=== PATIENT | female | born 1960 | race Two or more races ===

== ENCOUNTER 2017-04-03 10:33 | Emergency (ER) | payer MEDICAID ==
[~2017-04-03] VITALS: Ht 162.6 cm; Wt 65.8 kg
[~2017-04-03 10:33] MED LIST: ALPR1TAB2 PO; ARIP2TAB PO; GABA-339 PO; NIC21P TOP; PROZAC PO; QUET400T PO
[2017-04-03 11:45] LABS: Basophils # (auto) 0 uL; Basophils % (auto) 0.2 % (0.0-2.0); Eosinophils # (auto) 0.1 uL; Eosinophils % (auto) 0.8 % (0.0-7.0); Hematocrit 38.6 % (36.0-46.0); Hemoglobin 12.9 g/dL (12.2-16.2); Lymphocytes # (auto) 0.8 uL; Lymphocytes % (auto) 10.9 % (10.0-50.0); Mean Corpuscular Hemoglobin 32.4 pg (28.0-32.0); Mean Corpuscular Hgb Conc. 33.4 g/dL (32.0-36.0); Mean Platelet Volume 6.5 fL (6.9-10.8); Monocytes # (auto) 0.3 uL; Neutrophils # (auto) 5.8 uL; Neutrophils % (auto) 84.1 % (37.0-80.0); Platelet Count (auto) 320 10^3/uL (140-450); Red Cell Distribution Width 14.3 % (11.8-14.3)
[2017-04-03 12:13] LABS: Albumin 4.4 g/dL (3.4-5.0); BUN/Creatinine Ratio 11.1; Bilirubin, Total 0.4 mg/dL (0.2-1.0); Calcium 9.2 mg/dL (8.5-10.1)
[2017-04-03] MEDS ORDERED: SODIUM CHLORIDE 0.9% 1,000 ML IV ONE (17:30)
[2017-04-03] MEDS ORDERED: QUEtiapine FUMARATE 100 MG TAB PO ONE (19:45)
[2017-04-04 10:16] LABS: Urine Bilirubin Negative (Negative); Urine Blood Negative /uL (Negative); Urine Color Yellow (Yellow); Urine Glucose Normal (Normal); Urine Ketone 1+ (Negative); Urine Nitrite Negative (Negative); Urine RBC 2 /hpf (0 - 4); Urine Squamous Epithelial Cell FEW /hpf (<5); Urine Urobilinogen Normal (Negative)
[2017-04-04] MEDS ORDERED: ACETAMINOPHEN 500 MG TAB PO ONE (14:00)
[2017-04-04] MEDS ORDERED: ALPRAZolam 0.5 MG TAB PO ONE (15:45)
[2017-04-05] MEDS ORDERED: ALPRAZolam 0.5 MG TAB PO SCH (10:00)
[2017-04-05] MEDS ORDERED: CIPROFLOXACIN HCL 500 MG TAB PO ONE (13:45)
[2017-04-05 16:43] VITALS: BP 131/80
== END 2017-04-05 13:40 | disposition short-term general hospital (02) ==
LOC: ER 10:33
DX: F32.9 Major depressive disorder, single episode, unspecified (principal); R45.851 Suicidal ideations; F41.9 Anxiety disorder, unspecified; R42 Dizziness and giddiness; N39.0 Urinary tract infection, site not specified; F17.210 Nicotine dependence, cigarettes, uncomplicated; Z87.442 Personal history of urinary calculi; Z90.49 Acquired absence of other specified parts of digestive tract
CPT/HCPCS: 36415; 70450; 71020; 80053; 80307; 81001; 82962; 85025; 93005

== ENCOUNTER 2017-09-20 18:40 | Emergency (ER) | payer MEDICAID ==
[~2017-09-20] VITALS: Ht 157.5 cm; Wt 56.7 kg
[2017-09-20 19:11] LABS: Basophils # (auto) 0.1 uL; Basophils % (auto) 0.9 % (0.0-2.0); Eosinophils # (auto) 0.1 uL; Eosinophils % (auto) 0.9 % (0.0-7.0); Hematocrit 39.1 % (36.0-46.0); Lymphocytes # (auto) 1.2 uL; Lymphocytes % (auto) 11.4 % (10.0-50.0); Mean Corpuscular Hemoglobin 31.9 pg (28.0-32.0); Mean Corpuscular Hgb Conc. 33.1 g/dL (32.0-36.0); Mean Corpuscular Volume 96.3 fL (80.0-100.0); Monocytes # (auto) 0.5 uL; Monocytes % (auto) 4.6 % (0.0-12.0); Neutrophils # (auto) 8.8 uL; Neutrophils % (auto) 82.2 % (37.0-80.0); Nucleated Red Blood Cells % 0.1 %; Platelet Count (auto) 330 10^3/uL (140-450); Red Blood Cells 4.06 10^6/uL (4.0-5.20); Red Cell Distribution Width 13.8 % (11.8-14.3); White Blood Cell 10.7 10^3/uL (4.4-10.8)
[2017-09-20 19:30] LABS: Albumin 4.4 g/dL (3.4-5.0); BUN/Creatinine Ratio 11.4; Calcium 9.7 mg/dL (8.5-10.1)
[2017-09-20 19:33] LABS: Bilirubin, Total 0.5 mg/dL (0.2-1.0); Total Protein 8.3 g/dL (6.4-8.2)
[2017-09-20 19:35] LABS: Acetaminophen < 2.0 ug/mL (10-30); Salicylate < 1.7 mg/dL (2.8-20.0)
[2017-09-21 01:57] VITALS: BP 100/62
== END 2017-09-21 04:18 | disposition home or self-care (01) ==
LOC: ER 18:40
DX: F32.0 Major depressive disorder, single episode, mild (principal); F41.9 Anxiety disorder, unspecified; R45.851 Suicidal ideations; F17.210 Nicotine dependence, cigarettes, uncomplicated; R51 Headache; Z87.442 Personal history of urinary calculi; Z90.49 Acquired absence of other specified parts of digestive tract
CPT/HCPCS: 36415; 70450; 80053; 80329; 85025; 93005

== ENCOUNTER 2018-05-22 12:09 | Emergency (ER) | payer MEDICAID ==
[~2018-05-22] VITALS: Ht 170.2 cm; Wt 63.5 kg
[~2018-05-22 12:09] MED LIST changes: -ALPR1TAB2 PO; -ARIP2TAB PO; +ASEN10SU3 SL; +BUPR100T14 PO; -GABA-339 PO; +LAMO100T44 PO; +LITH300C3 PO; -NIC21P TOP; -PROZAC PO; +QUET200T3 PO; -QUET400T PO
[2018-05-22] MEDS ORDERED: SODIUM CHLORIDE 0.9% 500 ML IVB ONE (13:51)
[2018-05-22] MEDS ORDERED: SODIUM CHLORIDE 0.9% 1,000 ML IV ONE (13:51)
[2018-05-22] MEDS ORDERED: LAMO100T44 PO (14:21)
[2018-05-22] MEDS ORDERED: QUET400T3 PO (14:21)
[2018-05-22] MEDS ORDERED: BUPR-40 PO (14:21)
[2018-05-22] MEDS ORDERED: FLUO-125 PO (14:21)
[2018-05-22] MEDS ORDERED: LITH300C3 PO ×2 (14:21)
[2018-05-22 14:37] LABS: Basophils # (auto) 0 uL; Basophils % (auto) 0.4 % (0.0-2.0); Eosinophils # (auto) 0.4 uL; Eosinophils % (auto) 8.2 % (0.0-7.0); Hematocrit 32.8 % (36.0-46.0); Hemoglobin 10.9 g/dL (12.2-16.2); Lymphocytes # (auto) 1.4 uL; Lymphocytes % (auto) 28.5 % (10.0-50.0); Mean Corpuscular Hemoglobin 32.9 pg (28.0-32.0); Mean Corpuscular Hgb Conc. 33.1 g/dL (32.0-36.0); Mean Corpuscular Volume 99.3 fL (80.0-100.0); Monocytes # (auto) 0.3 uL; Monocytes % (auto) 5.3 % (0.0-12.0); Neutrophils # (auto) 2.8 uL; Neutrophils % (auto) 57.6 % (37.0-80.0); Nucleated Red Blood Cells % 0.1 %; Platelet Count (auto) 342 10^3/uL (140-450); White Blood Cell 4.8 10^3/uL (4.4-10.8)
[2018-05-22 14:42] LABS: Urine Bacteria FEW /hpf (None Seen); Urine Blood Negative /uL (Negative); Urine Specific Gravity 1.006 (1.001-1.035); Urine WBC 5 /hpf (0 - 5)
[2018-05-22 15:00] LABS: Alcohol, Urine < 3.0 mg/dL (0-5); Amphetamine Screen, Urine NEGATIVE (NEGATIVE); Barbiturate Scree,Urine NEGATIVE (NEGATIVE); Benzodiazephine Screen, Urine POSITIVE (NEGATIVE); Cannabinoid Screen, Urine NEGATIVE (NEGATIVE); Cocaine Screen, Urine NEGATIVE (NEGATIVE); Opiate Scree,Urine NEGATIVE (NEGATIVE); Phencyclidine Screen, Urine NEGATIVE (NEGATIVE)
[2018-05-22 15:48] LABS: Albumin 3.8 g/dL (3.4-5.0); Anion Gap 5 (5-15); Blood Alcohol < 3.0 mg/dL (0-5); Blood Urea Nitrogen 9 mg/dL (7-18); Calcium 8.7 mg/dL (8.5-10.1); Carbon Dioxide 22 mmol/L (21-32); Chloride 114 mmol/L (98-107); Glucose 86 mg/dL (74-106); Sodium 141 mmol/L (136-145)
[2018-05-22 15:53] LABS: Alanine Aminotransferase 32 U/L (13-56); Alkaline Phosphatase 132 U/L (45-117); Aspartate Aminotransferase 20 U/L (15-37); BUN/Creatinine Ratio 14.1; Bilirubin, Total 0.2 mg/dL (0.2-1.0); GFR African American 123 mL/min; GFR Non-African American 102 mL/min
[2018-05-22 17:42] VITALS: BP 123/76
== END 2018-05-22 18:20 | disposition left against medical advice (07) ==
LOC: EDBD 12:09 → ER 12:16
DX: I10 Essential (primary) hypertension (principal); F31.9 Bipolar disorder, unspecified; F25.9 Schizoaffective disorder, unspecified; R41.82 Altered mental status, unspecified; N39.0 Urinary tract infection, site not specified; F41.9 Anxiety disorder, unspecified; Z79.899 Other long term (current) drug therapy; Z87.442 Personal history of urinary calculi; Z53.29 Procedure and treatment not carried out because of patient's decision for other reasons
CPT/HCPCS: 36415; 70450; 71045; 80053; 80307; 80320; 81001; 83735; 84443; 84484; 85025; 93005; 96360; 99284; J7040

== ENCOUNTER 2019-02-01 13:01 | Emergency (ER) | payer MEDICAID ==
[~2019-02-01] VITALS: Ht 157.5 cm; Wt 54.4 kg
[~2019-02-01 13:01] MED LIST changes: -ASEN10SU3 SL; +BUPR-40 PO; -BUPR100T14 PO; +FLUO-125 PO; -QUET200T3 PO; +QUET400T3 PO
[2019-02-01 15:33] LABS: Anion Gap 8 (5-15); BUN/Creatinine Ratio 18.1; Blood Alcohol < 3.0 mg/dL (0-5); Blood Urea Nitrogen 17 mg/dL (7-18); Calcium 9.7 mg/dL (8.5-10.1); Carbon Dioxide 20 mmol/L (21-32); Chloride 109 mmol/L (98-107); GFR African American 79 mL/min; GFR Non-African American 65 mL/min; Glucose 96 mg/dL (74-106); Sodium 137 mmol/L (136-145)
[2019-02-01 15:47] LABS: Potassium 2.4 mmol/L (3.5-5.1)
[2019-02-01 17:30] LABS: Basophils # (auto) 0.1 uL; Basophils % (auto) 0.7 % (0.0-2.0); Eosinophils # (auto) 0.1 uL; Eosinophils % (auto) 1.2 % (0.0-7.0); Hematocrit 37.6 % (36.0-46.0); Hemoglobin 13.1 g/dL (12.2-16.2); Lymphocytes # (auto) 2.8 uL; Lymphocytes % (auto) 32.7 % (10.0-50.0); Mean Corpuscular Hemoglobin 32.9 pg (28.0-32.0); Mean Corpuscular Hgb Conc. 34.8 g/dL (32.0-36.0); Mean Corpuscular Volume 94.4 fL (80.0-100.0); Monocytes # (auto) 0.6 uL; Monocytes % (auto) 7.1 % (0.0-12.0); Neutrophils # (auto) 4.9 uL; Neutrophils % (auto) 58.3 % (37.0-80.0); Platelet Count (auto) 394 10^3/uL (140-450); Red Blood Cells 3.98 10^6/uL (4.0-5.20); Red Cell Distribution Width 13.8 % (11.8-14.3); White Blood Cell 8.5 10^3/uL (4.4-10.8)
[2019-02-01] MEDS ORDERED: POTASSIUM CHL 20 Meq TABLET PO ONE ×2 (18:15→19:30)
[2019-02-01 19:05] LABS: Alcohol, Urine < 3.0 mg/dL (0-5); Amphetamine Screen, Urine NEGATIVE (NEGATIVE); Barbiturate Scree,Urine NEGATIVE (NEGATIVE); Benzodiazephine Screen, Urine NEGATIVE (NEGATIVE); Cannabinoid Screen, Urine NEGATIVE (NEGATIVE); Cocaine Screen, Urine NEGATIVE (NEGATIVE); Opiate Scree,Urine NEGATIVE (NEGATIVE); Phencyclidine Screen, Urine NEGATIVE (NEGATIVE)
[2019-02-02] MEDS ORDERED: POTASSIUM CHL 20 Meq TABLET PO ONE (05:45)
[2019-02-02] MEDS ORDERED: ACETAMINOPHEN 500 MG TAB PO ONE (11:45)
[2019-02-02] MEDS ORDERED: LORazepam 0.5 MG TAB PO ONE (23:45)
[2019-02-03 11:43] LABS: Urine Bacteria FEW /hpf (None Seen); Urine Blood Negative /uL (Negative); Urine Specific Gravity 1.007 (1.001-1.035); Urine WBC 3 /hpf (0 - 5)
[2019-02-03] MEDS ORDERED: ACETAMINOPHEN 325 MG TAB PO ONE (18:45)
[2019-02-04] MEDS ORDERED: ACETAMINOPHEN 500 MG TAB PO ONE ×2 (12:55→13:00)
[2019-02-04] MEDS ORDERED: lamoTRIgine 100 MG TAB PO ONE (14:24)
[2019-02-04] MEDS ORDERED: LITHIUM CARBONATE 300 MG TAB PO ONE (14:24)
[2019-02-04] MEDS ORDERED: FLUoxetine HCL 20 MG CAP PO ONE (14:24)
[2019-02-04] MEDS ORDERED: buPROPion HCL 100 MG TAB PO ONE (14:24)
[2019-02-04] MEDS ORDERED: lamoTRIgine 100 MG TAB ONE (22:21)
[2019-02-04] MEDS ORDERED: QUEtiapine FUMARATE 100 MG TAB ONE ×3 (22:23→22:33)
[2019-02-04] MEDS: QUEtiapine FUMARATE 100 MG TAB PO SCH (22:30)
[2019-02-04] MEDS: lamoTRIgine 100 MG TAB PO SCH (22:30)
[2019-02-05] MEDS ORDERED: buPROPion HCL 100 MG TAB PO SCH (10:00)
[2019-02-05] MEDS ORDERED: LITHIUM CARBONATE 300 MG TAB PO SCH (10:00)
[2019-02-05] MEDS ORDERED: FLUoxetine HCL 20 MG CAP PO SCH (10:00)
[2019-02-05] MEDS: QUEtiapine FUMARATE 100 MG TAB PO SCH ×2 (13:02→22:40)
[2019-02-05] MEDS: lamoTRIgine 100 MG TAB PO SCH ×2 (13:02→22:40)
[2019-02-05 20:30] VITALS: BP 95/57
== END 2019-02-06 00:10 | disposition short-term general hospital (02) ==
LOC: ER 13:08
DX: F31.9 Bipolar disorder, unspecified (principal); F41.9 Anxiety disorder, unspecified; E87.6 Hypokalemia; R45.851 Suicidal ideations; F20.9 Schizophrenia, unspecified; Z87.440 Personal history of urinary (tract) infections; Z90.49 Acquired absence of other specified parts of digestive tract
CPT/HCPCS: 36415; 80048; 80307; 80320; 81001; 84132; 85025; 94761

== ENCOUNTER 2019-02-21 15:48 | Emergency (ER) | payer MEDICAID ==
[~2019-02-21] VITALS: Ht 157.5 cm; Wt 52.2 kg
[2019-02-21] MEDS ORDERED: ASPirin 81 mg TAB PO ONE (16:00)
[2019-02-21 16:46] LABS: Basophils # (auto) 0.1 uL; Basophils % (auto) 1.2 % (0.0-2.0); Eosinophils # (auto) 0.2 uL; Eosinophils % (auto) 2.5 % (0.0-7.0); Hematocrit 38.6 % (36.0-46.0); Hemoglobin 13.4 g/dL (12.2-16.2); Lymphocytes # (auto) 2.2 uL; Lymphocytes % (auto) 29.6 % (10.0-50.0); Mean Corpuscular Hgb Conc. 34.7 g/dL (32.0-36.0); Mean Corpuscular Volume 95.1 fL (80.0-100.0); Monocytes # (auto) 0.3 uL; Monocytes % (auto) 4.4 % (0.0-12.0); Neutrophils # (auto) 4.7 uL; Neutrophils % (auto) 62.3 % (37.0-80.0); Nucleated Red Blood Cells % 0.1 %; Platelet Count (auto) 347 10^3/uL (140-450); Red Blood Cells 4.06 10^6/uL (4.0-5.20); Red Cell Distribution Width 14.3 % (11.8-14.3); White Blood Cell 7.6 10^3/uL (4.4-10.8)
[2019-02-21 17:01] LABS: Albumin 4.4 g/dL (3.4-5.0); Anion Gap 10 (5-15); Blood Urea Nitrogen 14 mg/dL (7-18); Carbon Dioxide 16 mmol/L (21-32); Chloride 112 mmol/L (98-107); Glucose 85 mg/dL (74-106); INR 0.96 (0.9-1.15); Partial Thromboplastin Time 20.8 sec (23.64-32.05); Potassium 3.5 mmol/L (3.5-5.1); Sodium 138 mmol/L (136-145)
[2019-02-21 17:05] LABS: Alanine Aminotransferase 17 U/L (13-56); Alkaline Phosphatase 86 U/L (45-117); Aspartate Aminotransferase 15 U/L (15-37); BUN/Creatinine Ratio 16.5; Bilirubin, Total 0.4 mg/dL (0.2-1.0); GFR African American 89 mL/min; GFR Non-African American 73 mL/min
[2019-02-21 18:32] VITALS: BP 131/60
== END 2019-02-21 18:35 | disposition home or self-care (01) ==
LOC: EDBD 15:48 → EDUNIT# 15:48 → ER 15:53
DX: R07.89 Other chest pain (principal)
CPT/HCPCS: 36415; 80053; 84484; 85025; 85610; 85730; 93005